=== PATIENT | female | born 1995 | race Two or more races ===

== ENCOUNTER 2019-11-26 09:19 | Emergency (ER) | payer OTHER, SELFPAY ==
--- NOTE | 2019-11-26 | US_ITS ---
EXAMINATION: OBSTETRICAL ULTRASOUND, FIRST TRIMESTER HISTORY: 24-year-old at 12.1 weeks of gestation Vaginal bleeding LMP: Unknown COMPARISON: 10/29/2019 TECHNIQUE: Real time transabdominal imaging with color and M-mode Doppler. FINDINGS: A single, live IUP CRL of 24.2 mm c/w 9.2wks is noted. Absent heart motion. On transabdominal view, gestational sac is funneling through the cervix suggestive of an incomplete . No evidence of subchorionic hematoma. Both maternal ovaries are seen and appear normal. GESTATIONAL AGE: 1. GA from LMP: 12.1 wks 2. GA from AUA: 9.2 wks ESTIMATED DATE OF DELIVERY: 1. ALFREDO from LMP: 06/08/2020 2. ALFREDO from AUA: 06/28/2020 IMPRESSION: 1. Embryonic demise with CRL c/w 9.2 weeks of gestation. 2. Absent heart motion 3. Funneling cervix with the gestational sac in the cervical canal consistent with incomplete . Discussion: I informed her that today's ultrasound findings. The incidence of the first trimester miscarriages approximately 20-30%. Majority of these miscarriages due to chromosomal abnormalities resulting from area of nondisjunction. I reassured her that the one first trimester miscarriage is not the alter her ability to conceive in carry a normal in the future. I informed her that she may pass the POC on Thank you very much for this referral. Majority of the visit was spent counseling and coordinating her care. Face to face time: 20 min.
--- NOTE | 2019-11-26 09:32 | ED_ITS ---
HPI - Female Genitourinary General Chief complaint: Vaginal Bleeding Stated complaint: VAGINAL BLEEDING ABD PAIN 12WKS PREG Time Seen by Provider: 11/26/19 09:32 Source: patient Mode of arrival: ambulatory History of Present Illness HPI Narrative: 12 weeks , positive bleeding this AM on toilet, had intercourse last night, some pain, no dizziness, no tissue seen MD elicited complaint: vaginal bleeding and pelvic pain Onset (ago): day(s) (today) Severity: moderate Quality of pain: cramping Consistency: intermittent Exacerbating factors: none Relieving factors: none Associated symptoms: abdominal pain Sexual activity: Yes Patient : Yes Related Data : 1 Para: 0 Total number of abortions (spontaneous and elective): 0 Previous Rx's Medication Instructions Recorded hydrocodone-acetaminophen 1 tab PO Q8H PRN #14 tab 11/26/19 ondansetron HCl [Zofran] 4 mg PO Q8H PRN #20 tab 11/26/19 Allergies Allergy/AdvReac Type Severity Reaction Status Date / Time amoxicillin [AMOXICILLIN] Allergy Unknown HIVES Verified 11/26/19 09:38 Sulfa (Sulfonamide Allergy Unknown Hives Verified 11/26/19 09:38 Antibiotics) sulfadiazine Allergy Unknown Hives Verified 11/26/19 09:38 sulfamethoxazole Allergy Unknown HIVES Verified 11/26/19 09:38 [From BACTRIM] trimethoprim [From BACTRIM] Allergy Unknown HIVES Verified 11/26/19 09:38 Review of Systems Review of Systems: Constitutional : No Fever, No Chills ENT/Mouth : No sore throat, No Rhinorrhea Eyes: No Eye Pain, No Redness Cardiovascular : No Chest Pain, No SOB Respiratory : No Cough, No Sputum, No Wheezing Gastrointestinal : positive Nausea, No Vomiting, No Diarrhea, positive abdominal pain, Genitourinary : positive irregular bleeding, No Dysuria, No Urinary Frequency, positive pelvic pain Musculoskeletal : No Myalgias Skin : No rash Neuro : No Weakness, No Headache Psych : No Anxiety/Panic, No Depression Heme/Lymph: No bruising, No Lymphadenopathy Endocrine : No Polyuria, No Polydipsia All other systems reviewed and are negative PMFSH Past Medical History Surgical History (Updated 11/26/19 @ 09:42 by Agnieszka Molina DO) History of appendectomy : 1 Para: 0 Total number of abortions (spontaneous and elective): 0 Social History Social History (Updated 11/26/19 @ 09:42 by Agnieszka Molina DO) Alcohol intake: never Smoking Status: Never smoker Use of substances other than those prescribed or required for medical reasons: No Advance Directives: No Advance Directives Information Provided: Yes Physical Exam Vital Signs and I&O and Narrative: Vital Signs and I&O: Vital Signs Temp 98.2 F 11/26/19 12:00 Pulse 59 11/26/19 12:00 Resp 18 11/26/19 12:00 BP 112/60 11/26/19 12:00 Pulse Ox 98 11/26/19 12:00 Intake & Output 11/25/19 11/26/19 11/26/19 18:59 06:59 18:59 Intake Total 1000 / 1000 Balance 1000 / 1000 Weight 96.162 kg Intake: Intake, IV Amoun t 1000 / 1000 0.9 % Sodium C hloride 1,000 ml 1000 / 1000 @ 999 mls/hr I VCONT .Q1H1M ASHOK Rx#:[id number] Body Mass Index 38.7 Appearance: Alert. Oriented X3. No acute distress. anxious Eyes: Pupils equal, round and reactive to light. ENT: Pharynx normal. Neck: Normal inspection. Neck supple. CVS: Normal heart rate and rhythm. Pulses normal. Respiratory: No respiratory distress. Breath sounds normal. Abdomen: Soft and mild suprapubic ttp : os closed brb noted on exam, no pooling no clots. Skin: Skin warm and dry. Normal skin color. Normal skin turgor. Extremities: No lower extremity edema. No lower extremity edema. Neuro: Oriented X 3. No motor deficit. No sensory deficit. Course Reevaluation(s) Reevaluation #1: call to Dr. Liriano Time: 11:54 Reevaluation #2: repeat call to OB Reevaluation #3: tissue removed by Dr. Liriano, bleeding stopped, he talked to her and will see her in the clinic, 1 week follow up hcg, give 1 time dose of doxy 200mg PO now MDM - Female Genitourinary MDM Narrative Medical decision making narrative: patient here with vaginal bleeding as well as pelvic pain, 12 weeks will need labs, Rh status, US to evaluate Lab Data Result diagrams: 11/26/19 10:10 11/26/19 10:10 Labs: Lab Results 11/26/19 11/26/19 11/26/19 Range/Units 10:10 10:10 10:10 WBC 9.6 (4.8-10.8) X10*3/uL RBC 4.61 (4.20-5.50) X10*6/uL Hgb 13.5 (12.0-16.0) g/dl Hct 40.4 (37-47) % MCV 87.6 (80-98) fL MCH 29.3 (27.0-33.0) pg MCHC 33.4 (31.0-35.0) g/dl RDW 14.0 (11.0-16.0) % Plt Count 318 (160-400) X10*3/uL MPV 9.4 (9.4-12.3) fL Immature Gran % (Auto) 0.3 (0.0-0.4) % Neut % (Auto) 71.6 (45-73) % Lymph % (Auto) 19.6 L (20-40) % [place] % (Auto) 6.9 (2-11) % Eos % (Auto) 1.1 (0-4) % Baso % (Auto) 0.5 (0-2) % Neut # (Auto) 6.9 (2.0-8.3) X10*3/uL Lymph # (Auto) 1.9 (1.2-4.9) X10*3/uL [place] # (Auto) 0.7 (0.1-1.2) X10*3/uL Eos # (Auto) 0.1 (0.0-0.4) X10*3/uL Baso # (Auto) 0.1 (0.0-0.2) X10*3/uL Abs Immat Gran (auto) 0.03 (0.00-0.03) X10*3/uL Absolute Nucleated RBC 0.000 (0.0-0.012) X10*3/uL Nucleated RBC % (auto) 0.0 (0.0-0.2) /100WBC Hold Blue Top SEE NOTE Sodium 135 (135-145) mmol/L Potassium 3.9 (3.3-5.1) mmol/l Chloride 104 (96-108) mmol/L Carbon Dioxide 25 (22-29) mmol/L Anion Gap 10 L (12-20) BUN 4 L (9-16) mg/dL Creatinine 0.58 (0.5-1.4) mg/dL Estim Creat Clear Calc 161.8 Estimated GFR > 60 Random Glucose 93 (60-115) mg/dL Calcium 9.1 (8.4-10.2) mg/dL Magnesium 1.9 (1.6-2.6) mg/dL Total Bilirubin 0.3 (0.0-1.0) mg/dL Direct Bilirubin 0.2 (0.0-0.5) mg/dL AST 19 (5-31) U/L ALT 15 (0-31) U/L Alkaline Phosphatase 59 (39-117) U/L Total Protein 6.9 (6.5-8.0) g/dL Albumin 4.0 (3.5-5.0) g/dL Lipase 7 L (8-78) U/L Beta HCG, Quant 2619 mIU/mL Blood Type 11/26/19 Range/Units 10:10 WBC (4.8-10.8) X10*3/uL RBC (4.20-5.50) X10*6/uL Hgb (12.0-16.0) g/dl Hct (37-47) % MCV (80-98) fL MCH (27.0-33.0) pg MCHC (31.0-35.0) g/dl RDW (11.0-16.0) % Plt Count (160-400) X10*3/uL MPV (9.4-12.3) fL Immature Gran % (Auto) (0.0-0.4) % Neut % (Auto) (45-73) % Lymph % (Auto) (20-40) % [place] % (Auto) (2-11) % Eos % (Auto) (0-4) % Baso % (Auto) (0-2) % Neut # (Auto) (2.0-8.3) X10*3/uL Lymph # (Auto) (1.2-4.9) X10*3/uL [place] # (Auto) (0.1-1.2) X10*3/uL Eos # (Auto) (0.0-0.4) X10*3/uL Baso # (Auto) (0.0-0.2) X10*3/uL Abs Immat Gran (auto) (0.00-0.03) X10*3/uL Absolute Nucleated RBC (0.0-0.012) X10*3/uL Nucleated RBC % (auto) (0.0-0.2) /100WBC Hold Blue Top Sodium (135-145) mmol/L Potassium (3.3-5.1) mmol/l Chloride (96-108) mmol/L Carbon Dioxide (22-29) mmol/L Anion Gap (12-20) BUN (9-16) mg/dL Creatinine (0.5-1.4) mg/dL Estim Creat Clear Calc Estimated GFR Random Glucose (60-115) mg/dL Calcium (8.4-10.2) mg/dL Magnesium (1.6-2.6) mg/dL Total Bilirubin (0.0-1.0) mg/dL Direct Bilirubin (0.0-0.5) mg/dL AST (5-31) U/L ALT (0-31) U/L Alkaline Phosphatase (39-117) U/L Total Protein (6.5-8.0) g/dL Albumin (3.5-5.0) g/dL Lipase (8-78) U/L Beta HCG, Quant mIU/mL Blood Type O Positive Discharge Plan Discharge Clinical Impression: Complete Patient Disposition: Home, Self-Care Instructions: Miscarriage (ED) Additional Instructions: RETURN FOR FEVERS, WORSENING BLEEDING, CLOTS LARGER THAN A QUARTER, DIZZINESS, TROUBLE BREATHING Prescriptions: New ondansetron HCl [Zofran] 4 mg tablet 4 mg PO Q8H PRN (Reason: nausea and vomiting) Qty: 20 RF: 0 hydrocodone-acetaminophen 5-325 mg tablet 1 tab PO Q8H PRN (Reason: pain) Qty: 14 RF: 0 Referrals: Dharmesh Liriano MD [Physician] - 1 week (YOU NEED A REPEAT HCG IN 1 WEEK THROUGH ED OR PCP) Stand Alone Forms: Work/School Release
[2019-11-26 09:40] VITALS: BP 123/77; PULSE 73; RESP 16; TEMP 37.5; O2SAT 98; BMI 38.7
[2019-11-26 10:23] LABS: MANUAL DIFF FLAG NO
[2019-11-26 10:25] LABS: Basophils Absolute Auto 0.1 X10*3/uL (0.0-0.2); Basophils Percent Auto 0.5 % (0-2); Eosinophils Absolute Auto 0.1 X10*3/uL (0.0-0.4); Eosinophils Percent Auto 1.1 % (0-4); Hematocrit 40.4 % (37-47); Hemoglobin 13.5 g/dl (12.0-16.0); Imm Gran Abs Auto 0.03 X10*3/uL (0.00-0.03); Imm Gran Pct Auto 0.3 % (0.0-0.4); Lymphocytes Absolute Auto 1.9 X10*3/uL (1.2-4.9); Lymphocytes Percent Auto 19.6 % (20-40); Mean Corpuscular HGB Conc 33.4 g/dl (31.0-35.0); Mean Corpuscular Hemoglobin 29.3 pg (27.0-33.0); Mean Corpuscular Volume 87.6 fL (80-98); Mean Platelet Volume 9.4 fL (9.4-12.3); Monocytes Absolute Auto 0.7 X10*3/uL (0.1-1.2); Monocytes Percent Auto 6.9 % (2-11); Neutrophils Absolute Auto 6.9 X10*3/uL (2.0-8.3); Neutrophils Percent Auto 71.6 % (45-73); Platelet Count 318 X10*3/uL (160-400); Red Blood Count 4.61 X10*6/uL (4.20-5.50); White Blood Count 9.6 X10*3/uL (4.8-10.8)
[2019-11-26] MEDS: Acetaminophen 325 MG TABLET 650 MG PO (10:38)
[2019-11-26] MEDS: 0.9 % Sodium Chloride 1,000 ML 999 ML IVCONT (10:39)
--- NOTE | 2019-11-26 10:44 | PC.NURSE ---
PT ALERT AND ORIENTED X4. SKIN WPD. RESPIRATIONS EVEN AND NON LABORED. REPORTS INTERMITTENT LOWER ABD CRAMPING SINCE APPROX 0000 AND 1 EPISODE OF A LOT OF VAGINAL BLEEDING WITH CLOTS (UNSURE OF SIZE OF CLOTS) AROUND 0800. VERY MILD BLEEDING SINCE. HAS NOT SATURATED 1 PAD SINCE. MEDICATED WITH TYLENOL FOR CRAMPING. IV IN PLACE. LABS SENT. NS INFUSING. PT NOW OFF TO US.
[2019-11-26 10:53] LABS: Alanine Aminotransferase 15 U/L (0-31); Alkaline Phosphatase 59 U/L (39-117); Anion Gap 10 (12-20); Aspartate Amino Transferase 19 U/L (5-31); Bilirubin Direct 0.2 mg/dL (0.0-0.5); Bilirubin Total 0.3 mg/dL (0.0-1.0); Blood Urea Nitrogen 4 mg/dL (9-16); Calcium 9.1 mg/dL (8.4-10.2); Carbon Dioxide 25 mmol/L (22-29); Chloride 104 mmol/L (96-108); Creatinine Clr Calc Pharmacy 161.8; Estimated Glomerular Filt Rate > 60; Glucose Random 93 mg/dL (60-115); Lipase 7 U/L (8-78); Magnesium 1.9 mg/dL (1.6-2.6); Potassium 3.9 mmol/l (3.3-5.1); Sodium 135 mmol/L (135-145); Total Protein 6.9 g/dL (6.5-8.0)
[2019-11-26 11:03] LABS: HCG Quantitative 2619 mIU/mL
[2019-11-26] MEDS: Morphine Sulfate 4 MG/ML CARTRIDGE IVPUSH (11:58)
[2019-11-26] MEDS: ondansetron HCL 4 MG/2 ML VIAL IVPUSH (11:58)
[2019-11-26 12:00] VITALS: BP 112/60; PULSE 59; RESP 18; TEMP 36.8; O2SAT 98
--- NOTE | 2019-11-26 12:07 | PC.NURSE ---
PT REPORTS ABD CRAMPING HAS INCREASED IN INTENSITY. MEDICATED WITH MORPHINE PER EMAR. STILL HAS NOT NEEDED A CHANGE IN PAD; BLEEDING REMAINS MILD.
--- NOTE | 2019-11-26 13:01 | PC.NURSE ---
FINGERNAIL FORMER FOR PELVIC EXAM FOR DR. HUDSON AT APPROXIMATELY 12:45.
--- NOTE | 2019-11-26 13:03 | P.CONOB_ITS ---
[employer] - CN: HPI Data of Consult Primary Care Provider: Unknown Physician Consult Narrative Narrative: Yisel Chan is a 24 year old female cc:: CC: Meds Allergies Allergy/AdvReac Type Severity Reaction Status Date / Time amoxicillin [AMOXICILLIN] Allergy Unknown HIVES Verified 11/26/19 09:38 Sulfa (Sulfonamide Allergy Unknown Hives Verified 11/26/19 09:38 Antibiotics) sulfadiazine Allergy Unknown Hives Verified 11/26/19 09:38 sulfamethoxazole Allergy Unknown HIVES Verified 11/26/19 09:38 [From BACTRIM] trimethoprim [From BACTRIM] Allergy Unknown HIVES Verified 11/26/19 09:38 [employer] - Results Labs CBC & Chem 7: 11/26/19 10:10 11/26/19 10:10 Labs: Short CBC 11/26/19 Range/Units 10:10 WBC 9.6 (4.8-10.8) X10*3/uL Hgb 13.5 (12.0-16.0) g/dl Hct 40.4 (37-47) % Plt Count 318 (160-400) X10*3/uL BMP 11/26/19 10:10 Sodium 135 Potassium 3.9 Chloride 104 Carbon Dioxide 25 BUN 4 L Creatinine 0.58 Calcium 9.1 Liver Function 11/26/19 Range/Units 10:10 Total Bilirubin 0.3 (0.0-1.0) mg/dL Direct Bilirubin 0.2 (0.0-0.5) mg/dL AST 19 (5-31) U/L ALT 15 (0-31) U/L Alkaline Phosphatase 59 (39-117) U/L Albumin 4.0 (3.5-5.0) g/dL Assessment and Plan (1) Complete : Status: Acute Discussed with the patient the finding on ultrasound physical exam. Diagnosis being complete miscarriage, tissues hanging out of the cervix, removed using ring forceps, sent to pathology. Signs and symptoms of incomplete miscarriage were discussed with the patient. She is to call if bleeding or abdominal cramps occurs , temperature above 100.4, nausea or vomit ing. Doxycycline 200 mg p.o. x1. Follow up in the office in 1 week with an HCG level. all questions answered, the patient verbalized understanding. Discussed findings discharge instructions with Dr. Molina.
--- NOTE | 2019-11-26 13:57 | PC.NURSE ---
purple packet completed. support paperwork given. case management support offered and pt declined. poc sent to histology per protocol
== END 2019-11-26 13:02 | disposition home or self-care (01) ==
PROVIDERS: Emergency Provider Emergency Medicine
DX: O03.9 Complete or unspecified spontaneous abortion without complication (principal)
CPT/HCPCS: 36415; 76801; 80048; 80076; 83690; 83735; 84702; 85025; 86900; 86901; 88305; 96361; 96374; 96375; 99283; 99284

== ENCOUNTER 2019-12-03 10:29 | Outpatient (REF) | payer OTHER, SELFPAY ==
[2019-12-03 11:39] LABS: HCG Quantitative 50 mIU/mL
== END 2019-12-03 10:30 | disposition home or self-care (01) ==
LOC: HO.LAB 10:29
PROVIDERS: Visit Provider Advanced Practice Midwife
DX: O03.9 Complete or unspecified spontaneous abortion without complication (principal)
CPT/HCPCS: 84702; 99213

== ENCOUNTER 2019-12-29 17:40 | Outpatient (REF) | payer OTHER, SELFPAY ==
[2019-12-29 18:52] LABS: HCG Quantitative 3 mIU/mL
== END 2019-12-29 17:41 | disposition home or self-care (01) ==
LOC: HO.LAB 17:40
PROVIDERS: Visit Provider Advanced Practice Midwife
DX: O03.9 Complete or unspecified spontaneous abortion without complication (principal)
CPT/HCPCS: 84702

== ENCOUNTER → 2020-01-25 14:27 | Outpatient (BNVA) | payer OTHER, SELFPAY | PROVIDERS: Visit Provider Advanced Practice Midwife | DX: Z76.89 Persons encountering health services in other specified circumstances (principal) ==

== ENCOUNTER → 2020-05-31 11:21 | Outpatient (BNVA) | payer OTHER, SELFPAY | PROVIDERS: Visit Provider Obstetrics & Gynecology ==

== ENCOUNTER 2020-06-04 17:32 | Emergency (ER) | payer OTHER, SELFPAY ==
--- NOTE | ~2020-06-04 | US_ITS ---
EXAMINATION: PELVIC ULTRASOUND CLINICAL INFORMATION: Pain. Positive . Spotting. COMPARISON: Ultrasound November 2019. TECHNIQUE: Transabdominal and transvaginal pelvic ultrasound performed. FINDINGS: Endometrial canal appears normal without gestational sac pole or cardiac activity. Endometrial thickness measures 16 mm period Right ovary 2.6 x 2.3 x 1.7 cm. Left ovary 3.7 x 2.9 x 2.87 cm. There is a cyst measuring 1.6 cm. Cul-de-sac fluid: None. US/US transvaginal IMPRESSION: No sonographic findings of intrauterine . No adnexal mass or free fluid in the pelvis.. Findings overall nonspecific this could reflect an early or early embryonic demise given patient's positive test.
--- NOTE | ~2020-06-04 | US_ITS ---
EXAMINATION: PELVIC ULTRASOUND CLINICAL INFORMATION: Pain. Positive . Spotting. COMPARISON: Ultrasound November 2019. TECHNIQUE: Transabdominal and transvaginal pelvic ultrasound performed. FINDINGS: Endometrial canal appears normal without gestational sac pole or cardiac activity. Endometrial thickness measures 16 mm period Right ovary 2.6 x 2.3 x 1.7 cm. Left ovary 3.7 x 2.9 x 2.87 cm. There is a cyst measuring 1.6 cm. Cul-de-sac fluid: None. US/US OB <= 14 weeks fetus IMPRESSION: No sonographic findings of intrauterine . No adnexal mass or free fluid in the pelvis.. Findings overall nonspecific this could reflect an early or early embryonic demise given patient's positive test.
[2020-06-04 17:35] VITALS: BP 117/61; PULSE 67; RESP 18; TEMP 36.8; O2SAT 99; BMI 38.0
[2020-06-04 18:50] LABS: MANUAL DIFF FLAG NO
[2020-06-04 18:53] LABS: Basophils Absolute Auto 0.1 X10*3/uL (0.0-0.2); Basophils Percent Auto 0.4 % (0-2); Eosinophils Absolute Auto 0.2 X10*3/uL (0.0-0.4); Eosinophils Percent Auto 1.6 % (0-4); Hematocrit 38.3 % (37-47); Hemoglobin 12.6 g/dl (12.0-16.0); Imm Gran Abs Auto 0.02 X10*3/uL (0.00-0.03); Imm Gran Pct Auto 0.2 % (0.0-0.4); Lymphocytes Absolute Auto 2.8 X10*3/uL (1.2-4.9); Lymphocytes Percent Auto 24.9 % (20-40); Mean Corpuscular HGB Conc 32.9 g/dl (31.0-35.0); Mean Corpuscular Hemoglobin 29.4 pg (27.0-33.0); Mean Corpuscular Volume 89.5 fL (80-98); Mean Platelet Volume 9.5 fL (9.4-12.3); Monocytes Absolute Auto 0.9 X10*3/uL (0.1-1.2); Monocytes Percent Auto 8.2 % (2-11); Neutrophils Absolute Auto 7.2 X10*3/uL (2.0-8.3); Neutrophils Percent Auto 64.7 % (45-73); Platelet Count 289 X10*3/uL (160-400); Red Blood Count 4.28 X10*6/uL (4.20-5.50); White Blood Count 11.2 X10*3/uL (4.8-10.8)
--- NOTE | 2020-06-04 18:58 | PC.NURSE ---
PT TO CT SCAN
[2020-06-04 19:02] LABS: Partial Thromboplastin Time 34.2 SEC (24.1-38.0)
[2020-06-04 19:13] LABS: Appearance Urine CLEAR; Color Urine YELLOW; Glucose Urine UA NEG (NEG); Leukocyte Esterase Urine NEG (NEG); Nitrite Urine NEG (NEG); Specific Gravity - Urine >= 1.030 (1.005-1.025); Urine Blood NEG (NEG); Urine Ketones 5 MG/DL (NEG); Urine Protein NEG (NEG-TRACE)
[2020-06-04 19:22] LABS: Alanine Aminotransferase 16 U/L (0-31); Albumin Level 3.8 g/dL (3.5-5.0); Alkaline Phosphatase 65 U/L (39-117); Anion Gap 12 (12-20); Aspartate Amino Transferase 17 U/L (5-31); Bilirubin Total 0.3 mg/dL (0.0-1.0); Blood Urea Nitrogen 10 mg/dL (9-16); Calcium 8.4 mg/dL (8.4-10.2); Carbon Dioxide 24 mmol/L (22-29); Chloride 106 mmol/L (96-108); Creatinine Clr Calc Pharmacy 143.8; Estimated Glomerular Filt Rate > 60; Glucose Random 90 mg/dL (60-115); Potassium 4.1 mmol/L (3.3-5.1); Sodium 138 mmol/L (135-145); Total Protein 6.7 g/dL (6.5-8.0)
[2020-06-04 19:22] LABS: UPreg QC Valid YES; Urine Pregnancy POSITIVE (NEGATIVE)
[2020-06-04 19:24] LABS: Mucus Urine TRACE /LPF; RBC Urine 0 /HPF (0); Squamous Epithelial Cell Urine 2+ /LPF; WBC Urine 0 /HPF (0-4)
[2020-06-04 19:42] VITALS: BP 121/65; PULSE 72; RESP 16; TEMP 36.7; O2SAT 98
[2020-06-04 19:42] LABS: HCG Quantitative 36 mIU/mL
--- NOTE | 2020-06-04 20:29 | ED_ITS ---
HPI - General Chief complaint: Vaginal Bleeding Stated complaint: spotting - preg Time Seen by Provider: 06/04/20 18:13 Source: patient Mode of arrival: ambulatory Limitations: no limitations History of Present Illness HPI Narrative: 25-year-old female who reports prior miscarriage at 12 weeks and until 2019 aside from this she has history of appendectomy and anxiety, not currently taking any medications states she was late for her menstrual cycle. Her last menses cycle was at the end of March and this month she was also late she sometimes will have irregular periods due to stress and was unsure if this was related and so she took a test couple days ago that was positive took another 1 today is also positive she noted to have some right pink spotting on the panty line and this made her concerned which led her to her ED visit today also reports some suprapubic abdominal cramping like discomfort. Otherwise no dysuria, vaginal discharge, abdominal pain, nausea, vomiting or diarrhea. No recent travel or sick contacts. No recent injury. Planned . MD Complaint: vaginal bleeding Onset (ago): day(s) Pain Consistency: intermittent Location: pelvis Severity: mild Quality: Cramping Radiation: pelvis Relieving factors: none Exacerbating factors: none Associated symptoms: denies other symptoms Vaginal discharge: none Vaginal bleeding: light Date of Last Menstrual Period: 04/23/20 Patient : Yes OB History - Current : other (Miscarriage in November 2019) care: other (She was seen by OBGYN service is here) Related Data Previous Rx's Medication Instructions Recorded hydrocodone-acetaminophen 1 tab PO Q8H PRN #14 tab 11/26/19 ondansetron HCl [Zofran] 4 mg PO Q8H PRN #20 tab 11/26/19 Allergies Allergy/AdvReac Type Severity Reaction Status Date / Time amoxicillin [AMOXICILLIN] Allergy Unknown HIVES Verified 05/31/20 11:22 Sulfa (Sulfonamide Allergy Unknown Hives Verified 05/31/20 11:22 Antibiotics) trimethoprim [From BACTRIM] Allergy Unknown HIVES Verified 05/31/20 11:22 Review of Systems Review of Systems: Constitutional: No Weight loss, No Fever, No Chills, No Night Sweats, No Fatigue, No Malaise ENT/Mouth: No Hearing loss, No Ear Pain, No Nasal Congestion, No Sinus Pain, No Hoarseness, No sore throat, No Rhinorrhea, No Swallowing Difficulty Eyes: No Eye Pain, No Swelling, No Redness, No Foreign Body, No Discharge, No Vision Changes Cardiovascular: No Chest Pain, No SOB, No Dyspnea on Exertion, No Orthopnea, No Edema, No Palpitations Respiratory: No Cough, No Sputum, No Wheezing, No Smoke Exposure, No Dyspnea Gastrointestinal: No Nausea, No Vomiting, No Diarrhea, No Constipation, No abdominal Pain, No Hematochezia, No Melena Genitourinary: As noted HPI, No Dysuria, No Urinary Frequency, No Hematuria, No Urinary Incontinence, No Urgency, No Flank Pain, No Urinary Flow Changes, No Hesitancy Musculoskeletal: No joint pain, No Myalgias, No Joint Swelling Skin: No Skin Lesions, No rash Neuro: No Weakness, No Numbness, No Paresthesias, No Loss of Consciousness, No Dizziness, No Headache Psych: No Social Issues Heme/Lymph: No Bruising, No Bleeding,No Lymphadenopathy Endocrine: No Polyuria, No Polydipsia, No Temperature Intolerance Yes all other systems are reviewed and are negative [facility] Past Medical History Medical History Anxiety and depression History of abnormal cervical Pap smear Miscarriage Surgical History History of appendectomy Date of Last Menstrual Period: 04/23/20 Family History Family History Mother Breast cancer Social History Social History Alcohol intake: never Smoking Status: Never smoker Use of substances other than those prescribed or required for medical reasons: No Advance Directives: No Advance Directives Information Provided: Yes Sexual orientation: Straight/Heterosexual Gender identity: female Physical Exam Vital Signs: Vital Signs: Last Vital Signs Temp 98.1 F 06/04/20 19:42 Pulse 72 06/04/20 19:42 Resp 16 06/04/20 19:42 BP 121/65 06/04/20 19:42 Pulse Ox 98 06/04/20 19:42 Body Mass Index 38.0 Reviewed Const: General: cooperative and healthy appearing; No acute distress or intoxicated appearing Nutritional Appearance: average body habitus Orientation/consciousness: patient oriented x3 HENMT: Head: Yes normal to inspection Ears: hearing grossly normal bilat erally Eyes: General: appearance normal, both eyes and all related structures Visual Braxton: normal visual braxton by confrontation Neck: Neck: Yes normal visual inspection, No positive Brudzinski's sign, No positive Kernig's sign and No tender Thyroid: Thyroid normal Chest: Chest palpation & inspection: normal inspection of the chest Resp: Effort & Inspection: normal respiratory effort Auscultation: clear to auscultation bilaterally Cardio: Jugular venous distension: no JVD Rhythm: regular rhythm Heart sounds: S1 normal heart sound present and S2 normal heart sound present GI: Inspection: Yes normal to inspection Palpation (GI): Soft to palpation Percussion: Yes normal to percussion Auscultation: normal bowel sounds : General: Yes no CVA tenderness Back/Spine/Pelvis: Back: no CVA tenderness Skin: General skin exam: no rashes or lesions noted Neuro: General: patient oriented x3 Extrem: General: Yes normal to inspection Course Course Course Narrative: 25-year-old female with above history late for her menstrual cycle last full cycle was in March had irregular which is not unusual for her took a home test positive now having slight spotting no heavy bleeding or passing clots aside from this no other complaints. Labs including UA, hCG quant, Rh type, Ob ultrasound. Differential diagnosis include but not limited to miscarriage, threatened miscarriage, ectopic, UTI. She is hemodynamically stable nontoxic appearing. Reevaluation(s) Reevaluation #1: Labs with very minimal leukocytosis 11.2 otherwise stable quant very low at 38 urine clean ultrasound with no definitive intrauterine . I had a lengthy conversation with the patient that this could be early versus spontaneous versus possibility of ectopic. She has no bleeding at this time. She verbalized understanding of the findings and aware that I spoke to her OBGYN team with recommendation to have repeat hCG quant in 2 days to follow up with the ob/gyn doctor services. Precautions provided for spontaneous , ectopic provided including return instructions. She feels comfortable plan. Stable for discharge. Consultations Consultation #1: Case discussed with Dr. Liriano the OBGYN MDM - OB/Uterine Contractions Medical Records Attestation: I reviewed the patient's medical records. Lab Data Attestation: I reviewed the patient's lab results. Result diagrams: 06/04/20 18:42 06/04/20 18:42 Labs: Lab Results 06/04/20 06/04/20 06/04/20 Range/Units 18:42 18:42 18:42 WBC 11.2 H (4.8-10.8) X10*3/uL RBC 4.28 (4.20-5.50) X10*6/uL Hgb 12.6 (12.0-16.0) g/dl Hct 38.3 (37-47) % MCV 89.5 (80-98) fL MCH 29.4 (27.0-33.0) pg MCHC 32.9 (31.0-35.0) g/dl RDW 14.0 (11.0-16.0) % Plt Count 289 (160-400) X10*3/uL MPV 9.5 (9.4-12.3) fL Immature Gran % (Auto) 0.2 (0.0-0.4) % Neut % (Auto) 64.7 (45-73) % Lymph % (Auto) 24.9 (20-40) % [place] % (Auto) 8.2 (2-11) % Eos % (Auto) 1.6 (0-4) % Baso % (Auto) 0.4 (0-2) % Lymph # (Auto) 2.8 (1.2-4.9) X10*3/uL [place] # (Auto) 0.9 (0.1-1.2) X10*3/uL Eos # (Auto) 0.2 (0.0-0.4) X10*3/uL Baso # (Auto) 0.1 (0.0-0.2) X10*3/uL Abs Immat Gran (auto) 0.02 (0.00-0.03) X10*3/uL Absolute Neuts (auto) 7.2 (2.0-8.3) X10*3/uL Absolute Nucleated RBC 0.000 (0.0-0.012) X10*3/uL Nucleated RBC % (auto) 0.0 (0.0-0.2) /100WBC APTT (24.1-38.0) SEC Sodium 138 (135-145) mmol/L Potassium 4.1 (3.3-5.1) mmol/L Chloride 106 (96-108) mmol/L Carbon Dioxide 24 (22-29) mmol/L Anion Gap 12 (12-20) BUN 10 D (9-16) mg/dL Creatinine 0.64 (0.5-1.4) mg/dL Estim Creat Clear Calc 143.8 Estimated GFR > 60 Random Glucose 90 (60-115) mg/dL Calcium 8.4 D (8.4-10.2) mg/dL Total Bilirubin 0.3 (0.0-1.0) mg/dL AST 17 (5-31) U/L ALT 16 (0-31) U/L Alkaline Phosphatase 65 (39-117) U/L Total Protein 6.7 (6.5-8.0) g/dL Albumin 3.8 (3.5-5.0) g/dL Beta HCG, Quant 36 mIU/mL Urine Color Urine Appearance Urine pH (5.0-8.0) Ur Specific [place] (1.005-1.025) Urine Protein (NEG-TRACE) MG/DL Urine Glucose (UA) (NEG) MG/DL Urine Ketones (NEG) MG/DL Urine Blood (NEG) Urine Nitrite (NEG) Ur Leukocyte Esterase (NEG) Urine RBC (0) /HPF Urine WBC (0-4) /HPF Ur Squamous Epith Cells /LPF Urine Bacteria /LPF Urine Mucus /LPF Urine Test (NEGATIVE) Blood Type O Positive 06/04/20 06/04/20 06/04/20 Range/Units 18:42 19:00 19:00 WBC (4.8-10.8) X10*3/uL RBC (4.20-5.50) X10*6/uL Hgb (12.0-16.0) g/dl Hct (37-47) % MCV (80-98) fL MCH (27.0-33.0) pg MCHC (31.0-35.0) g/dl RDW (11.0-16.0) % Plt Count (160-400) X10*3/uL MPV (9.4-12.3) fL Immature Gran % (Auto) (0.0-0.4) % Neut % (Auto) (45-73) % Lymph % (Auto) (20-40) % [place] % (Auto) (2-11) % Eos % (Auto) (0-4) % Baso % (Auto) (0-2) % Lymph # (Auto) (1.2-4.9) X10*3/uL [place] # (Auto) (0.1-1.2) X10*3/uL Eos # (Auto) (0.0-0.4) X10*3/uL Baso # (Auto) (0.0-0.2) X10*3/uL Abs Immat Gran (auto) (0.00-0.03) X10*3/uL Absolute Neuts (auto) (2.0-8.3) X10*3/uL Absolute Nucleated RBC (0.0-0.012) X10*3/uL Nucleated RBC % (auto) (0.0-0.2) /100WBC APTT 34.2 (24.1-38.0) SEC Sodium (135-145) mmol/L Potassium (3.3-5.1) mmol/L Chloride (96-108) mmol/L Carbon Dioxide (22-29) mmol/L Anion Gap (12-20) BUN (9-16) mg/dL Creatinine (0.5-1.4) mg/dL Estim Creat Clear Calc Estimated GFR Random Glucose (60-115) mg/dL Calcium (8.4-10.2) mg/dL Total Bilirubin (0.0-1.0) mg/dL AST (5-31) U/L ALT (0-31) U/L Alkaline Phosphatase (39-117) U/L Total Protein (6.5-8.0) g/dL Albumin (3.5-5.0) g/dL Beta HCG, Quant mIU/mL Urine Color YELLOW Urine Appearance CLEAR Urine pH 6.0 (5.0-8.0) Ur Specific [place] >= 1.030 H (1.005-1.025) Urine Protein NEG (NEG-TRACE) MG/DL Urine Glucose (UA) NEG (NEG) MG/DL Urine Ketones 5 (NEG) MG/DL Urine Blood NEG (NEG) Urine Nitrite NEG (NEG) Ur Leukocyte Esterase NEG (NEG) Urine RBC 0 (0) /HPF Urine WBC 0 (0-4) /HPF Ur Squamous Epith Cells 2+ /LPF Urine Bacteria NONE /LPF Urine Mucus TRACE /LPF Urine Test POSITIVE H (NEGATIVE) Blood Type Imaging Data ultrasound: Radiologist's impression: [address] [id number] ReportSigned Patient: Mathew Ramirez#: [id number]: 1995Acct:[id number]/Sex: 25 / FADM Date: 06/04/20Loc: HO.EDAttending Dr: Ordering Physician: Hilton Manriquez NP Date of Service: 06/04/20 Procedure(s): US OB <= 14 weeks fetus Accession Number(s): [id number] cc: Hilton Manriquez NP~ EXAMINATION: PELVIC ULTRASOUND CLINICAL INFORMATION: Pain. Positive . Spotting. COMPARISON: Ultrasound November 2019. TECHNIQUE: Transabdominal and transvaginal pelvic ultrasound performed. FINDINGS: Endometrial canal appears normal without gestational sac pole or cardiac activity. Endometrial thickness measures 16 mm period Right ovary 2.6 x 2.3 x 1.7 cm. Left ovary 3.7 x 2.9 x 2.87 cm. There is a cyst measuring 1.6 cm. Cul-de-sac fluid: None. US/US OB <= 14 weeks fetus IMPRESSION: No sonographic findings of intrauterine . No adnexal mass or free fluid in the pelvis.. Findings overall nonspecific this could reflect an early or early embryonic demise given patient's positive test. Dictated By:FANG ROOT MDSigned By:<Electronically signed by FANG ROOT MD in OV>06/04/201932 DD/ 181TD/TT: Engine Lathe Set Up Operator Tool: RADHA Discharge Plan Discharge Clinical Impression: Threatened Patient Disposition: Home, Self-Care Instructions: Threatened Miscarriage (ED) Additional Instructions: Today you were evaluated for your spotting given that your levels are very low and the ultrasound does not show any evidence of intrauterine this indicates either this is a very early or you had a miscarriage. There is a possibility that this can be outside of the uterus and you will need to follow-up with the OBGYN service is closely for repeat blood test in 48 hours I went to the rest Drink plenty of fluids No sexual activity Avoid any stressful or exertional activity I would like for you to return to emergency room if you have any severe lower abdominal pain, heavy bleeding, fever, nausea, vomiting, chest pain or shortness of breath Thank you Prescriptions: No Action ondansetron HCl [Zofran] 4 mg tablet 4 mg PO Q8H PRN (Reason: nausea and vomiting) Qty: 20 RF: 0 hydrocodone-acetaminophen 5-325 mg tablet 1 tab PO Q8H PRN (Reason: pain) Qty: 14 RF: 0 Referrals: Dharmesh Liriano MD [Physician] - 2 days (Positive , spotting, quantity 38, ultrasound without intra uterine . Repeat quant)
== END 2020-06-04 21:00 | disposition home or self-care (01) ==
PROVIDERS: Nurse Practitioner Primary Care; Emergency Provider Emergency Medicine
DX: O20.0 Threatened abortion (principal); Z3A.01 Less than 8 weeks gestation of pregnancy
CPT/HCPCS: 36415; 76801; 76830; 80053; 81001; 81025; 84702; 85025; 85730; 86900; 86901; 99284

== ENCOUNTER 2020-06-06 12:30 | Outpatient (REF) | payer OTHER, SELFPAY ==
[2020-06-06 13:21] LABS: HCG Quantitative 45 mIU/mL
== END 2020-06-06 12:31 | disposition home or self-care (01) ==
LOC: HO.LAB 12:30
PROVIDERS: Visit Provider Obstetrics & Gynecology
DX: O20.0 Threatened abortion (principal)
CPT/HCPCS: 36415; 84702

== ENCOUNTER 2020-06-08 13:22 | Outpatient (REF) | payer OTHER, SELFPAY ==
[2020-06-08 14:24] LABS: HCG Quantitative 78 mIU/mL
== END 2020-06-08 13:23 | disposition home or self-care (01) ==
LOC: HO.LAB 13:22
PROVIDERS: Visit Provider Obstetrics & Gynecology
DX: O36.80X0 Pregnancy with inconclusive fetal viability, not applicable or unspecified (principal); Z3A.00 Weeks of gestation of pregnancy not specified
CPT/HCPCS: 36415; 84702

== ENCOUNTER 2020-06-10 10:31 | Outpatient (REF) | payer OTHER, SELFPAY ==
[2020-06-10 11:35] LABS: HCG Quantitative 84 mIU/mL
== END 2020-06-10 10:32 | disposition home or self-care (01) ==
LOC: HO.LAB 10:31
PROVIDERS: Visit Provider Obstetrics & Gynecology
DX: O36.80X0 Pregnancy with inconclusive fetal viability, not applicable or unspecified (principal)
CPT/HCPCS: 36415; 84702

== ENCOUNTER → 2020-06-13 14:29 | Outpatient (BNVA) | payer OTHER, SELFPAY | PROVIDERS: Visit Provider Obstetrics & Gynecology | DX: O36.80X0 Pregnancy with inconclusive fetal viability, not applicable or unspecified (principal) ==

== ENCOUNTER 2020-06-14 14:16 | Outpatient (REF) | payer OTHER, SELFPAY ==
[2020-06-14 15:59] LABS: HCG Quantitative 101 mIU/mL
== END 2020-06-14 14:17 | disposition home or self-care (01) ==
LOC: HO.LAB 14:16
PROVIDERS: Visit Provider Obstetrics & Gynecology
DX: O36.80X0 Pregnancy with inconclusive fetal viability, not applicable or unspecified (principal); Z3A.00 Weeks of gestation of pregnancy not specified
CPT/HCPCS: 36415; 84702

== ENCOUNTER 2020-06-16 14:00 | Outpatient (REF) | payer OTHER, SELFPAY ==
--- NOTE | ~2020-06-16 | US_ITS ---
EXAMINATION: FIRST TRIMESTER OB ULTRASOUND CLINICAL INFORMATION: with inconclusive viability. COMPARISON: Previous exam 06/04/2020 TECHNIQUE: Transabdominal and transvaginal pelvic ultrasound was performed. Transvaginal exam was performed for better visualization of the uterus and adnexa. FINDINGS: The uterus is anteverted and measures 7.6 x 3.4 x 5.3 cm in dimension. No focal uterine lesion is seen. The endometrial thickness is normal measuring 0.4 cm. No intrauterine is seen. The cervix is normal appearing. The ovaries are normal-appearing. The right ovary measures 2.7 x 2.5 x 1.8 cm and the left ovary measures 3.1 x 1.8 x 2.2 cm. There is no fluid in the pelvis. US/US OB pelvic and transvaginal IMPRESSION: Unremarkable pelvic ultrasound. No intrauterine seen.
[2020-06-16 15:50] LABS: HCG Quantitative 33 mIU/mL
== END 2020-06-16 14:01 | disposition home or self-care (01) ==
LOC: HO.US 14:00
PROVIDERS: Visit Provider Obstetrics & Gynecology
DX: O36.80X0 Pregnancy with inconclusive fetal viability, not applicable or unspecified (principal); Z3A.00 Weeks of gestation of pregnancy not specified
CPT/HCPCS: 36415; 76801; 76817; 84702

== ENCOUNTER → 2020-06-27 11:42 | Outpatient (BNVA) | payer OTHER, SELFPAY | PROVIDERS: Visit Provider Obstetrics & Gynecology ==

== ENCOUNTER 2020-07-14 11:29 | Outpatient (REF) | payer OTHER, SELFPAY ==
[2020-07-15 12:34] LABS: BV Int Neg Control Negative (Negative); BV Int Pos Control Positive (Positive)
== END 2020-07-14 11:30 | disposition home or self-care (01) ==
LOC: HO.LAB 11:29
PROVIDERS: Visit Provider Obstetrics & Gynecology
DX: N94.9 Unspecified condition associated with female genital organs and menstrual cycle (principal); E28.2 Polycystic ovarian syndrome
CPT/HCPCS: 87480; 87510; 87660; 99212

== ENCOUNTER 2020-07-17 12:22 | Outpatient (REF) | payer OTHER, SELFPAY ==
[2020-07-17 13:42] LABS: Cholesterol 149 mg/dL; HDL Cholesterol 47 mg/dL; LDL Cholesterol Calculated 83 mg/dl; Triglycerides 97 mg/dL
[2020-07-17 13:46] LABS: Estimated Average Glucose 103 mg/dL; Hemoglobin A1c % 5.2 %
[2020-07-17 14:02] LABS: TSH reflex Free T4 2.03 uIU/mL (0.32-4.0)
[2020-07-18 12:06] LABS: PTT (LAC) Screen 34 sec (< OR = 40)
[2020-07-18 20:11] LABS: Prolactin 11.5 ng/mL
== END 2020-07-17 12:23 | disposition home or self-care (01) ==
LOC: HO.LAB 12:22
PROVIDERS: PCP Internal Medicine; Visit Provider Obstetrics & Gynecology
DX: E28.2 Polycystic ovarian syndrome (principal); N96 Recurrent pregnancy loss
CPT/HCPCS: 36415; 80061; 83036; 83498; 84146; 84443; 85597; 85613; 85730

== ENCOUNTER 2021-02-26 | Emergency (ER) | payer OTHER, SELFPAY ==
--- NOTE | ~2021-02-26 | CT_ITS ---
EXAMINATION: CT HEAD WITHOUT CONTRAST CLINICAL INFORMATION: Headaches. COMPARISON: None TECHNIQUE: Contiguous axial imaging was performed from the skull base to vertex without intravenous administration of contrast. This CT examination was performed using dose optimization techniques as appropriate, variously including the following: *Automated exposure control *Adjustment of mA and/or kV according to patient size (this includes techniques or standardized protocols for targeted exams where dose is matched to indication/reason for exam; i.e. extremities or head) *Use of iterative reconstruction technique DLP: 1106 mGy-cm FINDINGS: There is no evidence of acute intracranial hemorrhage or territorial infarction. No abnormal mass effect or midline shift is seen. [place] to white matter differentiation is well preserved. No extra-axial fluid collections are identified. The ventricles are normal in size. There is no abnormal attenuation within the brain parenchyma. The osseous structures and soft tissues are normal. The mastoid air cells and visualized portions of the paranasal sinuses are well aerated. CT/CT head/brain wo con IMPRESSION: No acute intracranial pathology.
[2021-02-26 00:08] VITALS: BP 107/71; PULSE 85; RESP 18; TEMP 36.4; O2SAT 99; BMI 35.6
[2021-02-26] MEDS: Ondansetron ODT 4 MG TAB.RAPDIS TRANSLINGU (00:13)
[2021-02-26 00:45] LABS: COVID-19 Test Negative (Negative)
[2021-02-26 06:30] VITALS: BP 105/48; PULSE 72; RESP 14; O2SAT 99
--- NOTE | 2021-02-26 06:48 | ED.HA ---
HPI - Headache General Chief Complaint: Headache Stated Complaint: migraine, nausea Time Seen by Provider: 02/26/21 06:46 Source: patient Mode of arrival: ambulatory Limitations: no limitations History of Present Illness HPI Narrative: 25-year-old female came in for evaluation of a headache. Headache started a week ago described as pressure in the frontal area of the head, which is constant and severe 10/10, no alleviating factor, light and noise aggravator headache, headache is associated with photophobia and nausea, patient being getting headache occasionally in the past with the same severity. Aunt from father side diagnosed with brain tumor not sure what kind of tumor. No family history of brain bleed or known cerebral aneurysm. Patient declined chance of being and declined testing. No fever, no chills, no vomiting, no chest pain, no abdominal pain, no dizziness. Related Data Previous Rx's Medication Instructions Recorded hydrocodone 5 mg-acetaminophen 325 1 tab PO Q8H PRN #14 tab 11/26/19 mg tablet ondansetron HCl 4 mg tablet 4 mg PO Q8H PRN #20 tab 11/26/19 (Zofran) Allergies Allergy/AdvReac Type Severity Reaction Status Date / Time amoxicillin [AMOXICILLIN] Allergy Unknown HIVES Verified 02/26/21 00:08 Sulfa (Sulfonamide Allergy Unknown Hives Verified 02/26/21 00:08 Antibiotics) trimethoprim [From BACTRIM] Allergy Unknown HIVES Verified 02/26/21 00:08 Review of Systems Review of Systems: All other systems are reviewed and are negative Constitutional: Reports as per HPI and Reports no additional constitutional complaints Eyes: Reports as per HPI and Reports no additional eye complaints Reports system reviewed and no additional complaints, except as documented Cardiovascular: Reports as per HPI and Reports no additional cardiovascular complaints Respiratory: Reports as per HPI and Reports no additional respiratory complaints Gastrointestinal: Reports as per HPI and Reports no additional gastrointestinal complaints Genitourinary: Reports no additional female genitourinary complaints Musculoskeletal: Reports no additional musculoskeletal complaints Skin/Breast: Reports system reviewed and no additional complaints, except as docu Psychiatric: Reports no additional psychiatric complaints Endocrine: Reports no additional endocrine complaints Hematologic/Lymphatic: Reports no additional hematologic/lymphatic complaints Allergic/Immunologic: Reports no additional allergic/immunologic complaints Reports system reviewed and no additional complaints, except as documented and Reports Abnormal speech present [facility] Past Medical History Medical History Anxiety and depression History of abnormal cervical Pap smear Miscarriage Surgical History History of appendectomy Family History Family History Mother Breast cancer Social History Social History Alcohol intake: never Advance Directives: No Advance Directives Information Provided: Yes Sexual orientation: Straight/Heterosexual Gender identity: Female Physical Exam Vital Signs: Vital Signs: Last Vital Signs Temp 97.5 F 02/26/21 00:08 Pulse 83 02/26/21 07:42 Resp 18 02/26/21 07:42 BP 95/50 L 02/26/21 07:42 Pulse Ox 99 02/26/21 07:42 BMI result Body Mass Index 35.6 Vital signs have been reviewed as appeared to be correct. Blood pressure normal. Heart rate normal. Respiration rate normal. Temperature normal. Oxygen saturation normal. Appearance: Alert. Oriented X3. No acute distress. Head: Normal external exam. Normocephalic. Atraumatic. No Coelho signs noted. No raccoon eyes noted Eyes: PERRLA. EOMI. Conjunctiva and sclera normal. Eyelids normal. ENT: TM's Normal. Pharynx normal. Uvula midline. Moist mucous membranes. No trismus noted. No drooling noted. No muffled voice noted. Neck: Normal inspection. Neck supple. FROM. No adenopathy. Thyroid Normal. No meningeal signs. No neck mass noted. CVS: Normal heart rate and rhythm. Heart sound normal. No murmurs noted. Pulses normal throughout. Respiratory: No respiratory distress. Painless inspiration. Breath sounds normal. No wheezes/rales/rhonchi noted. Chest nontender. No accessory muscle usage noted or decreased air movement noted. Abdomen: Soft and nontender. Bowel sounds normal in all 4 quadrants. No distention noted. No organomegaly noted. No visible injury noted. Back: No CVA tenderness. Full range of motion noted. Skin: Skin warm and dry. Normal skin color. Normal skin turgor. No rashes/lesions/lacerations noted. Extremities: No lower extremity edema. Extremities exhibit normal range of motion. Extremities nontender. Neuro: Oriented X 3. Cranial nerve exam: II-XII are grossly intact No motor deficit. No sensory deficit. Reflexes normal. Course Course Course Narrative: 25-year-old female came in for few days of headache, no family history of cerebral aneurysm or bleed, no history of sudden or young gas in the family, patient in the emergency department received IV fluids, Benadryl, and Solu-Medrol, patient took a nap in the emergency department and felt better after. Patient has no headache now describes the pain is 0/10, patient was instructed to stay in quite dark room try to avoid computers or phones. MDM - Headache Lab Data Labs: Lab Results 02/26/21 Range/Units 00:24 COVID-19 ([facility]) Negative (Negative) COVID-19 Clin Com See Note Discharge Plan Discharge Clinical Impression: Headache Patient Disposition: Home, Self-Care Instructions: Acute Headache (ED) Prescriptions: No Action ondansetron HCl [Zofran] 4 mg tablet 4 mg PO Q8H PRN (Reason: nausea and vomiting) Qty: 20 RF: 0 hydrocodone-acetaminophen 5-325 mg tablet 1 tab PO Q8H PRN (Reason: pain) Qty: 14 RF: 0 Referrals: Physician,Unknown J [Primary Care Provider] - 2 days Stand Alone Forms: Work/School Release
[2021-02-26] MEDS: methylPREDNISolone Sod Succ 125 MG/2 ML VIAL IVPUSH (07:32)
[2021-02-26] MEDS: ondansetron HCL 4 MG/2 ML VIAL IVPUSH (07:32)
[2021-02-26] MEDS: Acetaminophen 325 MG TABLET 650 MG PO (07:32)
[2021-02-26] MEDS: 0.9 % Sodium Chloride 1,000 ML 999 ML IV (07:33)
[2021-02-26] MEDS: diphenhydrAMINE HCL 50 MG/ML VIAL 25 MG IVPUSH (07:33)
[2021-02-26 07:42] VITALS: BP 95/50; PULSE 83; RESP 18; O2SAT 99
--- NOTE | 2021-02-26 07:42 | PC.NURSE ---
Pt received: Pt AOx4 and c/[place] [id number] with N/V, dizziness, lightheadness and phtophobia. Normal heart sounds and clear lungs. Abd soft and non-tender. IV placed and meds given. CT done.
[2021-02-26 11:58] VITALS: BP 109/59; PULSE 79; RESP 16; TEMP 36.8; O2SAT 97
== END 2021-02-26 12:19 | disposition home or self-care (01) ==
PROVIDERS: Emergency Provider Emergency Medicine
DX: R51.9 Headache, unspecified (principal); Z20.822 Contact with and (suspected) exposure to COVID-19; R11.0 Nausea
CPT/HCPCS: 36415; 70450; 87635; 96361; 96374; 96375; 99284; J1200; J2405; J2930

== ENCOUNTER 2021-06-25 14:42 | Emergency (ER) | payer OTHER, SELFPAY ==
--- NOTE | 2021-06-25 15:37 | ECG_ITS ---
Test Reason : chest pain Blood Pressure : / mmHG Vent. Rate : 066 BPM Atrial Rate : 066 BPM P-R Int : 168 ms QRS Dur : 082 ms QT Int : 380 ms P-R-T Axes : 043 017 019 degrees QTc Int : 398 ms Sinus rhythm with marked sinus arrhythmia Otherwise normal ECG No previous ECGs available Referred By: Generic ED Physician Electronically Signed By:NATALIA BALDERRAMA MD
[2021-06-25 15:51] VITALS: BP 123/71; PULSE 69; RESP 14; TEMP 36.2; O2SAT 99; BMI 35.6
[2021-06-25 15:53] VITALS: BP 115/76; PULSE 66; RESP 20; TEMP 36.7; O2SAT 99; BMI 35.6
--- NOTE | 2021-06-25 19:40 | ED.ANXIETY ---
HPI - Anxiety General Chief Complaint: Anxiety Stated Complaint: CHEST PAIN Time Seen by Provider: 06/25/21 19:39 Source: patient Mode of arrival: ambulatory Limitations: no limitations History of Present Illness HPI narrative: 26 y/o female with history of PCOS, anxiety who presents to the ER with increased anxiety and depression. She reports being started on Wellbutrin 2 weeks ago by her PCP and she has been on Hydroxyzine BID-TID for the last 2-3 months with some minor improvement in her anxiety in the afternoons. She reports increased anxiety at night and inability to sleep. She has significant life stressors with now living alone, a new car payment, very tight on money. She reports having no friends or support. She says her mother is not supportive and her father drinks a lot and gets angry. She states she cries uncontrollably at times, gets fixated on issues at work and can't think straight. She admits to suicidal thoughts but does not have a plan. She does not think she would go through with it because she would not want to upset her parents. She denies ETOH or drug use. She presents today for help; she is not living anymore, I'm just surviving. complaint: anxiety and heart racing Onset (ago): week(s) Symptoms: palpitations Severity: severe Quality: worsening Place: home History of similar episodes: Yes Provoking factors: emotional stress, work/job stress and medication change Relieving factors: medication Exacerbating factors: thinking about event Associated symptoms: palpitations Related Data Previous Rx's Medication Instructions Recorded hydrocodone 5 mg-acetaminophen 325 1 tab PO Q8H PRN #14 tab 11/26/19 mg tablet ondansetron HCl 4 mg tablet 4 mg PO Q8H PRN #20 tab 11/26/19 (Zofran) lorazepam 0.5 mg tablet (Ativan) 0.5 mg PO BID PRN #8 tab 06/25/21 Allergies Allergy/AdvReac Type Severity Reaction Status Date / Time amoxicillin [AMOXICILLIN] Allergy Unknown HIVES Verified 06/25/21 19:36 Sulfa (Sulfonamide Allergy Unknown Hives Verified 06/25/21 19:36 Antibiotics) trimethoprim [From BACTRIM] Allergy Unknown HIVES Verified 06/25/21 19:36 Review of Systems Review of Systems: Constitutional: No Fever, No Chills ENT/Mouth: No sore throat, No Rhinorrhea Cardiovascular: No Chest Pain, No SOB, No Orthopnea, No Edema Respiratory: No Cough, No Sputum, No Wheezing, No dyspnea, +Palpitations Gastrointestinal: No Nausea, No Vomiting, No Diarrhea, No abdominal Pain Genitourinary: No Dysuria, No Urinary Frequency, No Hematuria Musculoskeletal: No joint pain, No Myalgias Skin: No Skin Lesions, No rash Neuro: No Weakness, No Numbness, No Dizziness, No Headache Psych: + Anxiety/Panic, + Depression, +SI, No HI, No AH, No VH Heme/Lymph: No Bruising, No Lymphadenopathy PMFSH Past Medical History Medical History Anxiety and depression History of abnormal cervical Pap smear Miscarriage Surgical History History of appendectomy Family History Family History Mother Breast cancer Social History Social History Alcohol intake: never Advance Directives: No Patient : No Sexual orientation: Straight/Heterosexual Gender identity: Female Physical Exam Vital Signs: Vital Signs: Last Vital Signs Temp 97.9 F 06/25/21 20:30 Pulse 72 06/25/21 20:30 Resp 16 06/25/21 20:30 BP 119/59 L 06/25/21 20:30 Pulse Ox 98 06/25/21 20:30 BMI result Body Mass Index 35.6 Appearance: Alert. Oriented X3. No acute distress. Eyes: Pupils equal, round and reactive to light. ENT: Pharynx normal. Neck: Normal inspection. Neck supple. CVS: Normal heart rate and rhythm. Pulses normal. Respiratory: No respiratory distress. Breath sounds normal. Abdomen: Soft and nontender. +BS x4 Skin: Skin warm and dry. Normal skin color. Normal skin turgor. No rashes. Extremities: No lower extremity edema. Neuro/psych: Oriented X 3. No motor deficit. No sensory deficit. CN II-XII intact. Tearful, anxious. Makes eye contact, appropriate with good insight Course Course Course Narrative: 26 y/o female presenting to the ER with worsening anxiety and depression. Recently started on Wellbutrin. Increased life stressors. Vague SI present but not felt to be at iminent risk at this time. Will get CARE team to evaluate her and provide further resources. Reevaluation(s) Reevaluation #1: CARE team evaluated the patient - she disclosed that she thinks she may have borderline personality disorder. no SI or HI. Given additional resources. 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 Feels improved after low dose ativan, will send a few to the pharmacy until she can be seen by a psychiatrist. MDM - Anxiety ECG Data Attestation: I personally reviewed and interpreted this ECG as follows: ECG interpretation date: 06/25/21 ECG interpretation time: 22:18 Interpretation: sinus rhythm with sinus arrythmia, HR 66 bpm, normal CA interval, normal QTC, no ST segment elevation or depressions Critical Care Time Critical Care Time Critical Care Time: No Discharge Plan Discharge Clinical Impression: Acute anxiety Patient Disposition: Home, Self-Care Instructions: Anxiety (ED) Additional Instructions: Take the prescribed medication as needed for anxiety Follow up with your providers and therapist as scheduled. If you develop new or worsening symptoms call 911 or come back to the ER for further evaluation. Prescriptions: New lorazepam [Ativan] 0.5 mg tablet 0.5 mg PO BID PRN (Reason: anxiety) Qty: 8 0RF No Action ondansetron HCl [Zofran] 4 mg tablet 4 mg PO Q8H PRN (Reason: nausea and vomiting) Qty: 20 0RF hydrocodone-acetaminophen 5-325 mg tablet 1 tab PO Q8H PRN (Reason: pain) Qty: 14 0RF Stand Alone Forms: Work/School Release
[2021-06-25] MEDS: LORazepam 0.5 MG TABLET PO (20:27)
[2021-06-25 20:30] VITALS: BP 119/59; PULSE 72; RESP 16; TEMP 36.6; O2SAT 98
--- NOTE | 2021-06-25 22:08 | MHC.CARE ---
Pt reports increased anxiety secondary to financial and personal stressors. She has a therapist and her PCP is currently prescribing some psychiatric medications. She denies SI/HI/. She denies AVH. She reports that she feels she can keep herself safe and was encouraged to reach out to [facility] crisis or come back to the ED if she was having thoughts of wanting to hurt herself or anyone else. CARE Team will refer pt to [facility] for a psychiatrist and follow up with her in a few days.
--- NOTE | 2021-06-28 09:43 | MHC.CARE ---
CARE Team left follow up call message.
== END 2021-06-25 22:31 | disposition home or self-care (01) ==
PROVIDERS: Emergency Provider Internal Medicine
DX: R07.89 Other chest pain (principal); F41.1 Generalized anxiety disorder; F43.0 Acute stress reaction; Z79.899 Other long term (current) drug therapy
CPT/HCPCS: 93005; 99283; 99284